=== PATIENT | male | born 1955 | race Caucasian/White ===

== ENCOUNTER → 2023-09-11 13:07 | Outpatient (REF) | payer OTHER, SELFPAY | LOC: RCS 13:07 | PROVIDERS: ATTENDING PHYSICIAN Nuclear Medicine Nuclear Cardiology; FAMILY PHYSICIAN Family Medicine | DX: I10 Essential (primary) hypertension (principal); R00.2 Palpitations | CPT/HCPCS: 93306 ==

== ENCOUNTER → 2024-08-03 06:36 | Outpatient (REF) | payer OTHER, SELFPAY | LOC: MRI 3T 06:36 | PROVIDERS: ATTENDING PHYSICIAN Specialist; FAMILY PHYSICIAN Internal Medicine | DX: R26.81 Unsteadiness on feet (principal) | CPT/HCPCS: 70551 ==

== ENCOUNTER → 2024-08-11 06:39 | Outpatient (REF) | payer OTHER, SELFPAY | LOC: RCS 06:39 | PROVIDERS: ATTENDING PHYSICIAN Nuclear Medicine Nuclear Cardiology; FAMILY PHYSICIAN Internal Medicine | DX: I10 Essential (primary) hypertension (principal); E78.5 Hyperlipidemia, unspecified; I25.10 Atherosclerotic heart disease of native coronary artery without angina pectoris | CPT/HCPCS: 78452; 93017; A9500 ==

== ENCOUNTER → 2024-12-23 07:30 | Outpatient (REF) | payer OTHER, SELFPAY | LOC: PAVMRI 07:30 | PROVIDERS: ATTENDING PHYSICIAN Internal Medicine Hematology & Oncology; FAMILY PHYSICIAN Internal Medicine | DX: D69.59 Other secondary thrombocytopenia (principal); D72.819 Decreased white blood cell count, unspecified | CPT/HCPCS: 74183; A9575 ==

== ENCOUNTER → 2025-01-12 06:23 | Outpatient (REF) | payer OTHER, SELFPAY ==
[2025-01-12 07:51] LABS: Hematocrit 42.4 % (39.0-52.0); Hemoglobin 14.7 g/dL (13.0-18.0); Mean Corp Hgb Conc. 34.7 g/dL (33.0-37.0); Mean Corpuscular Volume 101.2 fL (80.0-94.0); Nucleated Red Blood Cells % 0 % (-); Platelet Count 98 10^3/uL (130-400); Red Cell Dist. Width 12.5 % (11.5-14.5)
== END ==
LOC: REG 06:23
PROVIDERS: ATTENDING PHYSICIAN Internal Medicine Hematology & Oncology; FAMILY PHYSICIAN Internal Medicine
DX: D69.59 Other secondary thrombocytopenia (principal); D72.819 Decreased white blood cell count, unspecified
CPT/HCPCS: 36415; 85025; 86021

== ENCOUNTER → 2025-01-19 09:51 | Outpatient (REF) | payer OTHER, SELFPAY ==
[2025-01-19 10:58] LABS: Hematocrit 42.5 % (39.0-52.0); Hemoglobin 14.7 g/dL (13.0-18.0); Mean Corp Hgb Conc. 34.6 g/dL (33.0-37.0); Mean Corpuscular Volume 102.7 fL (80.0-94.0); Nucleated Red Blood Cells % 0 % (-); Platelet Count 109 10^3/uL (130-400); Red Cell Dist. Width 12.5 % (11.5-14.5)
== END ==
LOC: REG 09:51
PROVIDERS: ATTENDING PHYSICIAN Internal Medicine Hematology & Oncology; FAMILY PHYSICIAN Internal Medicine
DX: D69.59 Other secondary thrombocytopenia (principal); D72.819 Decreased white blood cell count, unspecified
CPT/HCPCS: 36415; 85025